=== PATIENT | male | born 1975 | race Caucasian/White ===

== ENCOUNTER → 2025-01-13 08:01 | Outpatient (REF) | payer SELFPAY | LOC: HWRAD 08:01 | PROVIDERS: ATTENDING PHYSICIAN Family Medicine | DX: E78.5 Hyperlipidemia, unspecified (principal) | CPT/HCPCS: 75571 ==

== ENCOUNTER → 2025-01-13 08:20 | Outpatient (REF) | payer BC, SELFPAY ==
[2025-01-13 11:46] LABS: PSA, Total - Screen 0.78 ng/ml (0.0-4.0)
== END ==
LOC: HWLAB 08:20
PROVIDERS: ATTENDING PHYSICIAN Family Medicine
DX: Z12.5 Encounter for screening for malignant neoplasm of prostate (principal)
CPT/HCPCS: 36415; G0103